=== PATIENT | female | born 1930 | race Caucasian/White ===

== ENCOUNTER → 2016-07-23 | Outpatient (CLI) | payer MEDICARE, BC ==
[~2016-07-23] MED LIST: ASPIRIN; CALTRATE PLUS T1 TAB PO; CLARITIN10 M2 PO; COUMADIN; COUMADIN PO; D3 PO; FLONASE16 GM; FOSAMAX; IRON1 TAB PO; KLOR-CON PO; LASIX PO; LISINOPRIL PO; LOPRESSOR PO; MUCINEX DM ER1 EACH PO; MULTI VITAMIN1 EACH PO; NEXIUM PO; NORVASC PO; PANTOPRAZOLE SO40 MG PO; PRAVACHOL20 MG PO; PROTONIX PO; RYTHMOL PO; SIMVASTATIN20 MG PO; SYNTHROID; SYNTHROID0.05 MG PO; TOPROL XL; ZESTORETIC 20/21 TAB; [UNRECOGNIZED DRUG - OTHER]; [UNRECOGNIZED DRUG - OTHER] PO
--- NOTE | ~2016-07-23 | MY11 ---
[facility] A Service of [facility] RADIOLOGY TEXT RESULTS PATIENT: IJEOMA PLASENCIA LOCATION: [facility] : 28 UNIT #: [id number] AGE: [address]: Ugo Osborne MD SEX: F ORDER DR: [id number] [facility] [address] [place], [place] [address] [id number] MR#: [id number] Acc #: [id number] NAME: IJEOMA PLASENCIA. : 1930 SEX: F STUDY DATE/TIME: 07/23/2016 8:34 UNIT: [facility] ROOM: STUDY DESCRIPTION: MY Mammogram Screening Dig Chidi Attending Physician: Ugo Osborne M.D. Ordering Physician: Ugo Osborne M.D. Primary Care Physician: Ugo Osborne M.D. MEDICAL IMAGING REPORT This report is preliminary unless electronic signature is present EXAM Digital screening mammogram 07/23/2016 HISTORY 86-year-old woman. No risk elevation. Annual screen. COMPARISON Mammograms date to 02/04/2005 with most recent screening comparison 12/06/2014. FINDINGS Digital imaging of each breast was completed utilizing screening protocol. Review includes FDA-approved CAD device. Breast parenchyma is partially fatty-replaced bilaterally. There are combined vascular and secretory calcifications in each breast somewhat dominant on the right. I see no interval-occurring microcalcifications. There are no suspicious mass characteristics and no architectural deformity. IMPRESSION Stable benign mammogram. Annual screening is optional at this age. Patient's over the age of 40 are entered into a reminder system with target due date for the next mammogram. BIRADS: 2 Benign findings Dictated by... Artie Patel M.D. THIS IS AN ELECTRONICALLY VERIFIED REPORT Artie Patel M.D. at 07/23/2016 2:42 PM JBB/aa [facility] A Service of [facility] RADIOLOGY TEXT RESULTS PATIENT: IJEOMA PALSENCIA LOCATION: [facility] : 28 UNIT #: [id number] AGE: [address]: Ugo Osborne MD SEX: F ORDER DR: TD: 07/23/2016 14:00 JOB #: [id number] MEDICAL IMAGING REPORT Page 1 of 1 COPY
== END | disposition home or self-care (01) ==
LOC: CWCC 08:15
DX: Z12.31 Encounter for screening mammogram for malignant neoplasm of breast (principal)
CPT/HCPCS: G0202